=== PATIENT | male | born 1950 | race Caucasian/White ===

== ENCOUNTER → 2019-03-02 | Outpatient (CLI) | payer BC | LOC: M.WC 05:14 | DX: T24.331D Burn of third degree of right lower leg, subsequent encounter (principal); E78.5 Hyperlipidemia, unspecified; M19.90 Unspecified osteoarthritis, unspecified site; M50.30 Other cervical disc degeneration, unspecified cervical region; Z87.891 Personal history of nicotine dependence; X08.8XXD Exposure to other specified smoke, fire and flames, subsequent encounter ==

== ENCOUNTER → 2019-03-09 | Outpatient (CLI) | payer BC | LOC: M.WC 05:16 | DX: T24.331D Burn of third degree of right lower leg, subsequent encounter (principal); E78.5 Hyperlipidemia, unspecified; M19.90 Unspecified osteoarthritis, unspecified site; Z87.891 Personal history of nicotine dependence; X08.8XXD Exposure to other specified smoke, fire and flames, subsequent encounter ==